=== PATIENT | male | born 1985 | race Caucasian/White ===

== ENCOUNTER 2019-05-27 14:51 | Emergency (ER) | payer OTHER ==
[2019-05-27 14:59] VITALS: BP 136/75; PULSE 101; RESP 18; TEMP 97.9
[2019-05-27] MEDS ORDERED: KETOROLAC 30 MG/ML 1 ML VIAL IM STA (15:29)
--- NOTE | 2019-05-27 15:52 | ED ---
General Adult HPI - General Chief complaint: Skin/Abscess/Foreign Body Stated complaint: Abcess on belly Time Seen by Provider: 05/27/19 15:08 Source: patient Mode of arrival: ambulatory Limitations: no limitations - History of Present Illness Initial comments: Patient is a 33-year-old male with history of MRSA presents emergency Department with a skin infection on his abdomen. Patient reports the lesion started approximately 2 weeks ago and almost resolved but has not reappeared again and is larger in size. Patient reports severe pain with palpation. Patient denies any fevers, chest pain, nausea or vomiting. Patient reports sharp pain on palpation. Patient denies taking any medication to alleviate the symptoms. - Related Data Home Medications Medication Instructions Recorded Confirmed Albuterol Inhaler [Ventolin 1 - 2 puff INHALATION RT-Q6H PRN 12/06/14 05/24/16 Inhaler] Methylphenidate HCl [Ritalin] 20 mg PO BID 12/06/14 05/24/16 Acetaminophen-Codeine 300-30mg 1 tab PO Q4H PRN 05/24/16 05/24/16 [Tylenol w/codeine #3] [place]-Rkml [id number] 1 tab PO Q4HR PRN 05/24/16 05/24/16 [Excedrin] HYDROcodone/APAP 5-325MG [[place] 1 tab PO Q4HR PRN 05/24/16 05/24/16 5-325] Ibuprofen [Motrin] 800 mg PO Q6HR PRN 05/24/16 05/24/16 Previous Rx's Medication Instructions Recorded Penicillin V Potassium [Pen Vee K] 500 mg PO QID #40 tab 05/19/16 Cephalexin [Keflex] 500 mg PO Q6HR #40 cap 05/27/19 Doxycycline Monohydrate [Monodox] 100 mg PO Q12HR #20 cap 05/27/19 Ibuprofen [Motrin] 800 mg PO Q6HR #30 tab 05/27/19 Allergies Allergy/AdvReac Type Severity Reaction Status Date / Time famotidine [From Pepcid] Allergy Unknown Verified 05/27/19 14:56 prednisone Allergy Unknown Verified 05/27/19 14:56 sulfamethoxazole Allergy Unknown Verified 05/27/19 14:56 [From Bactrim] trimethoprim [From Bactrim] Allergy Unknown Verified 05/27/19 14:56 mmr Allergy Unknown Uncoded 05/24/16 12:00 Review of Systems ROS Statement: Those systems with pertinent positive or pertinent negative responses have been documented in the HPI. ROS Other: All systems not noted in ROS Statement are negative. Past Medical History Past Medical History: Asthma Additional Past Medical History / Comment(s): MRSA - LT AXILLA 06/2014 History of Any Multi-Drug Resistant Organisms: MRSA Date of last positivie culture/infection: 06/08/14 MDRO Source:: Left Arm Past Surgical History: No Surgical Hx Reported Past Psychological History: ADD/ADHD, Anxiety Smoking Status: Current every day smoker Past Alcohol Use History: None Reported Past Drug Use History: Marijuana General Exam - General Exam Comments Initial Comments: General: Well-developed well-nourished distress HEENT: Normocephalic/atraumatic, PERLL, pharynx erythema, swallowing well, EAC no erythema, no exudates, TM clear, no cervical lymph nodes Neck: Supple, nontender, trachea midline Chest/Lungs: Normal respirations, no signs of respiratory distress clear to auscultation bilaterally no wheezes, rales, rhonchi Cardiac: Regular rate and rhythm, normal S1-S2, no murmurs rubs or gallops Abdomen/GI: Soft nontender, bowel sounds equal or quadrant x4, no guarding, no rebound no CVA tenderness Musculoskeletal: Nontender, full range of motion, no edema, strength equal bilaterally Skin: Warmth, 3 similar diameter erythematous lesion noted on the right upper quadrant, no fluctuance, 4 cm of induration, no discharge. Neurologic: AAO x 3, CN 2-12 intact, Psychiatric: Mood and affect normal, judgment normal Limitations: no limitations Course Vital Signs 05/27/19 14:56 Temperature 97.9 F Pulse Rate 101 H Respiratory 18 Rate Blood Pressure 136/75 O2 Sat by Pulse 99 Oximetry Medical Decision Making - Medical Decision Making She is a 33-year-old male presenting to emergency Department with a lesion on his abdomen. Patient reports all of his MRSA infections look very similar and this one appears to be exactly the same. Patient is coming to the emergency department for antibiotic. Patient was given ibuprofen for pain control. Patient will be discharged with a 10 day course of doxycycline due to his Bactrim ALLERGY and Keflex. Patient advised to follow-up with primary care. Strict return parameters were thoroughly discussed with patient was understanding and agreeable.I counseled the patient for smoking cessation for greater than 3 minutes. Case discussed with physician. Disposition Clinical Impression: Abscess Disposition: HOME SELF-CARE Condition: Stable Instructions (If sedation given, give patient instructions): Abscess (ED) Additional Instructions: Please take prescribed medication as directed. Please follow with primary care. Please return to emergency department if symptoms worsen. Prescriptions: Cephalexin [Keflex] 500 mg PO Q6HR #40 cap Doxycycline Monohydrate [Monodox] 100 mg PO Q12HR #20 cap Ibuprofen [Motrin] 800 mg PO Q6HR #30 tab Is patient prescribed a controlled substance at d/c from ED?: No Referrals: None,Stated [Primary Care Provider] - 1-2 days Time of Disposition: 15:53
== END 2019-05-27 16:00 | disposition home or self-care (01) ==
LOC: EC 14:51
DX: L02.211 Cutaneous abscess of abdominal wall (principal); J45.909 Unspecified asthma, uncomplicated; F90.9 Attention-deficit hyperactivity disorder, unspecified type; F17.200 Nicotine dependence, unspecified, uncomplicated; Z88.1 Allergy status to other antibiotic agents; Z88.2 Allergy status to sulfonamides; Z88.7 Allergy status to serum and vaccine; Z88.8 Allergy status to other drugs, medicaments and biological substances; Z79.899 Other long term (current) drug therapy; Z86.14 Personal history of Methicillin resistant Staphylococcus aureus infection; Z71.6 Tobacco abuse counseling; Z53.20 Procedure and treatment not carried out because of patient's decision for unspecified reasons
CPT/HCPCS: 99282; 99406

== ENCOUNTER → 2019-08-13 | Outpatient (CLI) | payer SELFPAY | END | disposition home or self-care (01) | LOC: LABWHC1 15:44 | PROVIDERS: ATTEND Obstetrics & Gynecology | DX: Z01.84 Encounter for antibody response examination (principal) | CPT/HCPCS: 86850; 86900; 86901; 86902 ==

== ENCOUNTER 2020-01-25 01:41 | Emergency (ER) | payer OTHER ==
[2020-01-25 01:47] VITALS: BP 164/91; PULSE 101; RESP 18; TEMP 98.5
[2020-01-25] MEDS ORDERED: IBUPROFEN 600 MG TAB PO STA (02:53)
[2020-01-25] MEDS ORDERED: CEPHALEXIN 500MG STARTER PACK 4 CAP BTL PO STA (02:55)
[2020-01-25] MEDS ORDERED: CEPHALEXIN 500 MG CAP PO STA (02:55)
[2020-01-25] MEDS ORDERED: DOXYCYCLINE 100 MG CAP PO STA (02:55)
--- NOTE | 2020-01-25 03:14 | ED ---
General Adult HPI - General Chief complaint: Skin/Abscess/Foreign Body Stated complaint: MRSA Time Seen by Provider: 01/25/20 02:04 Source: patient, RN notes reviewed, old records reviewed Mode of arrival: ambulatory Limitations: no limitations - History of Present Illness Initial comments: 34-year-old male patient has a history of MRSA (evaluation of abscess. Patient reports he does have 3 abscess at this time, however 1 she is most concerned about. Patient reports that on his left posterior thigh region he has an abscess also reports small and suprapubic and right wrist. Denies any systemic symptoms of infection. Denies any cough fever, denies any coronavirus exposures or travel. Denies any other complaints. Systemic: Pt denies fatigue, fever/chills, rash. Pt denies weakness, night sweats, weight loss. Neuro: Pt denies headache, visual disturbances, syncope or pre-syncope. HEENT: Pt denies ocular discharge or irritation, otalgia, rhinorrhea, pharyngitis or notable lymphadenopathy. Cardiopulmonary: Pt denies chest pain, SOB, heart palpitations, dyspnea on exertion. Abdominal/GI: Pt denies abdominal pain, n/v/d. : Pt denies dysuria, burning w/ urination, frequency/urgency. Denies new onset urinary or bowel incontinence. MSK: Pt denies myalgia, loss of strength or function in extremities. Neuro: Pt denies new onset weakness, paresthesias. - Related Data Home Medications Medication Instructions Recorded Confirmed Albuterol Inhaler [Ventolin 1 - 2 puff INHALATION RT-Q6H PRN 12/06/14 05/24/16 Inhaler] Methylphenidate HCl [Ritalin] 20 mg PO BID 12/06/14 05/24/16 Acetaminophen-Codeine 300-30mg 1 tab PO Q4H PRN 05/24/16 05/24/16 [Tylenol w/codeine #3] [place]-Mjop-Xszs [id number] 1 tab PO Q4HR PRN 05/24/16 05/24/16 [Excedrin] HYDROcodone/APAP 5-325MG [[place] 1 tab PO Q4HR PRN 05/24/16 05/24/16 5-325] Ibuprofen [Motrin] 800 mg PO Q6HR PRN 05/24/16 05/24/16 Previous Rx's Medication Instructions Recorded Penicillin V Potassium [Pen Vee K] 500 mg PO QID #40 tab 05/19/16 Cephalexin [Keflex] 500 mg PO Q6HR #40 cap 05/27/19 Doxycycline Monohydrate [Monodox] 100 mg PO Q12HR #20 cap 05/27/19 Ibuprofen [Motrin] 800 mg PO Q6HR #30 tab 05/27/19 Cephalexin [Keflex] 500 mg PO Q6HR 10 Days #40 cap 01/25/20 Doxycycline [Vibramycin] 100 mg PO BID 14 Days #7 capsule 01/25/20 Allergies Allergy/AdvReac Type Severity Reaction Status Date / Time famotidine [From Pepcid] Allergy Unknown Verified 01/25/20 01:47 prednisone Allergy Unknown Verified 01/25/20 01:47 sulfamethoxazole Allergy Unknown Verified 01/25/20 01:47 [From Bactrim] trimethoprim [From Bactrim] Allergy Unknown Verified 01/25/20 01:47 mmr Allergy Unknown Uncoded 01/25/20 01:47 Review of Systems ROS Statement: Those systems with pertinent positive or pertinent negative responses have been documented in the HPI. ROS Other: All systems not noted in ROS Statement are negative. Past Medical History Past Medical History: Asthma Additional Past Medical History / Comment(s): MRSA - LT AXILLA 06/2014 History of Any Multi-Drug Resistant Organisms: MRSA Date of last positivie culture/infection: 06/08/14 MDRO Source:: Left Arm Past Surgical History: No Surgical Hx Reported Past Psychological History: ADD/ADHD, Anxiety Smoking Status: Current every day smoker Past Alcohol Use History: None Reported Past Drug Use History: Marijuana General Exam - General Exam Comments Initial Comments: Constitutional: NAD, AOX3, Pt has pleasant affect. HEENT: NC/AT, trachea midline, neck supple, no lymphadenopathy. Posterior pharynx non erythematous, without exudates. External ears appear normal, without discharge. Mucous membranes moist. Eyes PERRLA, EOM intact. There is no scleral icterus. No pallor noted. Cardiopulmonary: RRR, no murmurs, rubs or gallops, no JVD noted. Lungs CTAB in anterior and posterior craven. No peripheral edema. Abdominal exam: Abdomen soft and non-distended. Abdomen non-tender to palpation in all 4 quadrants. Bowel sounds active in LLQ. No hepatosplenomegaly. No ecchymosis Neuro: CN II-XII grossly intact. No nuchal rigidity. No raccon eyes, no mcdonald sign, no hemotympanum. No cervical spinal tenderness. MSK: No posterior calf tenderness bilaterally, homans sign negative bilaterally. Posterior tibialis and radial pulse +2 bilaterally. Sensation intact in upper and lower extremities. Full active ROM in upper and lower extremities, 5/5 stregnth. Derm: 1 x 1 centimeter abscess right medial wrist region, minimal fluctuance, small amount of erythema. No streaking. 2 x 2 centimeter abscess suprapubic region, spontaneously draining. No streaking. 4 x 4 centimeter abscess left posterior thigh region. Cellulitic changes noted, no streaking, mild fluctuance, spontaneous drainage noted, incision and drainage performed. 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 Patient reports he does have 3 abscess at this time, however 1 she is most concerned about. Patient reports that on his left posterior thigh region he has an abscess also reports small and suprapubic and right wrist. Denies any systemic symptoms of infection. Denies any cough fever, denies any coronavirus exposures or travel. Denies any other complaints. Pt afebrile. Physical exam displayed: 1 x 1 centimeter abscess right medial wrist region, minimal fluctuance, small amount of erythema. No streaking. 2 x 2 centimeter abscess suprapubic region, spontaneously draining. No streaking. 4 x 4 centimeter abscess left posterior thigh region. Cellulitic changes noted, no streaking, mild fluctuance, spontaneous drainage noted, incision and drainage performed. Patient declines in drainage for all abscess with exception of posterior thigh. Patient will be discharged with doxycycline and Keflex. Will follow up with primary care provider and will return to ER if condition worsens. Case discussed with Dr. Palomares. Disposition Clinical Impression: Abscess, Cellulitis Disposition: HOME SELF-CARE Condition: Stable Instructions (If sedation given, give patient instructions): Cellulitis (ED), Abscess Incision and Drainage (ED), Abscess (ED) Additional Instructions: Take antibiotics as directed. Follow up with primary care provider tomorrow. Return to ER if condition worsens in any way. Prescriptions: Cephalexin [Keflex] 500 mg PO Q6HR 10 Days #40 cap Doxycycline [Vibramycin] 100 mg PO BID 14 Days #7 capsule Is patient prescribed a controlled substance at d/c from ED?: No Referrals: None,Stated [Primary Care Provider] - 1-2 days [facility] [NON-STAFF] - 1-2 days
--- NOTE | 2020-01-25 04:15 | ED ---
Disposition Clinical Impression: Abscess, Cellulitis Disposition: HOME SELF-CARE Condition: Stable Instructions (If sedation given, give patient instructions): Cellulitis (ED), Abscess Incision and Drainage (ED), Abscess (ED) Additional Instructions: Take antibiotics as directed. Follow up with primary care provider tomorrow. Return to ER if condition worsens in any way. 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
== END 2020-01-25 03:28 | disposition home or self-care (01) ==
LOC: EC 01:41
DX: L03.116 Cellulitis of left lower limb (principal); L03.314 Cellulitis of groin; L03.113 Cellulitis of right upper limb; J45.909 Unspecified asthma, uncomplicated; F90.9 Attention-deficit hyperactivity disorder, unspecified type; F17.200 Nicotine dependence, unspecified, uncomplicated; Z88.2 Allergy status to sulfonamides; Z88.7 Allergy status to serum and vaccine; Z88.8 Allergy status to other drugs, medicaments and biological substances; Z79.899 Other long term (current) drug therapy; Z86.14 Personal history of Methicillin resistant Staphylococcus aureus infection
CPT/HCPCS: 10060; 87070; 87077; 87186; 87205; 99284

== ENCOUNTER 2020-09-09 23:27 | Emergency (ER) | payer OTHER ==
[2020-09-09 23:41] VITALS: BP 158/119; PULSE 88; RESP 18; TEMP 98
[2020-09-09] MEDS ORDERED: CLINDAMYCIN 150 MG CAP PO STA (23:52)
[2020-09-09] MEDS ORDERED: IBUPROFEN 600 MG TAB PO STA (23:52)
[2020-09-09] MEDS ORDERED: HYDROcodone/APAP 5-325MG 1 EACH TAB PO STA (23:52)
--- NOTE | 2020-09-10 00:03 | ED ---
ENT HPI - General Chief complaint: ENT Stated complaint: Ear Pain/Jaw Pain Time Seen by Provider: 09/09/20 23:43 Source: patient Mode of arrival: ambulatory Limitations: no limitations - History of Present Illness Initial comments: Patient is a 34-year-old male presenting to emergency Department with complaints of right ear pain that just started today. Patient states he does have many dental caries and does not know if it's coming from his teeth or not. He states his hearing is a bit muffled on the right side as well. Patient states he does have some referred pain into his right jaw and into the right upper dental area. He denies any fever or chills. Denies a cough or sinus congestion. He states his pain just became severe today. He denies any injuries to his ear or his head. He has no further complaints at this time. Upon arrival to the ER his vital signs are stable. - Related Data Home Medications Medication Instructions Recorded Confirmed Albuterol Inhaler (Mhu) [Ventolin 1 - 2 puff INHALATION RT-Q6H PRN 12/06/14 05/24/16 Inhaler] Methylphenidate HCl [Ritalin] 20 mg PO BID 12/06/14 05/24/16 Acetaminophen-Codeine 300-30mg 1 tab PO Q4H PRN 05/24/16 05/24/16 [Tylenol w/codeine #3] Sqfzwvf-Tjyv-Eqjk [id number] 1 tab PO Q4HR PRN 05/24/16 05/24/16 [Excedrin] HYDROcodone/APAP 5-325MG [[place] 1 tab PO Q4HR PRN 05/24/16 05/24/16 5-325] Ibuprofen [Motrin] 800 mg PO Q6HR PRN 05/24/16 05/24/16 Previous Rx's Medication Instructions Recorded Penicillin V Potassium [Pen Vee K] 500 mg PO QID #40 tab 05/19/16 Cephalexin [Keflex] 500 mg PO Q6HR #40 cap 05/27/19 Doxycycline Monohydrate [Monodox] 100 mg PO Q12HR #20 cap 05/27/19 Ibuprofen [Motrin] 800 mg PO Q6HR #30 tab 05/27/19 Cephalexin [Keflex] 500 mg PO Q6HR 10 Days #40 cap 01/25/20 Doxycycline [Vibramycin] 100 mg PO BID 14 Days #7 capsule 01/25/20 Clindamycin HCl 300 mg PO Q8H 7 Days #21 cap 09/10/20 Clindamycin [Cleocin] 150 mg PO Q8H 7 Days #21 capsule 09/10/20 Ibuprofen [Motrin] 600 mg PO Q8HR PRN #30 tab 09/10/20 Allergies Allergy/AdvReac Type Severity Reaction Status Date / Time famotidine [From Pepcid] Allergy Unknown Verified 09/09/20 23:41 prednisone Allergy Unknown Verified 09/09/20 23:41 sulfamethoxazole Allergy Unknown Verified 09/09/20 23:41 [From Bactrim] trimethoprim [From Bactrim] Allergy Unknown Verified 09/09/20 23:41 mmr Allergy Unknown Uncoded 09/09/20 23:41 Review of Systems ROS Statement: Those systems with pertinent positive or pertinent negative responses have been documented in the HPI. ROS Other: All systems not noted in ROS Statement are negative. Past Medical History Past Medical History: Asthma Additional Past Medical History / Comment(s): MRSA - LT AXILLA 06/2014 History of Any Multi-Drug Resistant Organisms: MRSA Date of last positivie culture/infection: 06/08/14 MDRO Source:: Left Arm Past Surgical History: No Surgical Hx Reported Past Psychological History: ADD/ADHD, Anxiety Smoking Status: Current every day smoker Past Alcohol Use History: None Reported Past Drug Use History: Marijuana General Exam - General Exam Comments Initial Comments: GENERAL: Patient is well-developed and well-nourished. Patient is nontoxic and in mild distress. HEAD: Atraumatic, normocephalic. EYES: Pupils equal round and reactive to light, extraocular movements intact, sclera anicteric, conjunctiva are normal. Eyelids were unremarkable. ENT: Right TM is erythematous and bulging, left TM appears normal. nares patent, oropharynx clear without exudates. Moist mucous membranes. Patient has many dental caries, no visible abscess, mild pain with palpation of the right upper gumline. NECK: Normal range of motion, supple without lymphadenopathy or JVD. LUNGS: Unlabored respirations. Breath sounds clear to auscultation bilaterally and equal. No wheezes rales or rhonchi. HEART: Regular rate and rhythm without murmurs, rubs or gallops. ABDOMEN: Soft, nontender, normoactive bowel sounds. No guarding, no rebound. No masses appreciated. : Deferred MUSCULOSKELETAL: Normal extremities with adequate strength and normal range of motion, no pitting or edema. No clubbing or cyanosis. NEUROLOGICAL: Patient is alert and oriented x 3. Symmetrical smile. Normal speech, normal gait. PSYCH: Normal mood, normal affect. SKIN: Warm, Dry, normal turgor, no rashes or lesions noted. Limitations: no limitations Course Vital Signs 09/09/20 23:38 Temperature 98 F Pulse Rate 88 Respiratory 18 Rate Blood Pressure 158/119 O2 Sat by Pulse 100 Oximetry Medical Decision Making - Medical Decision Making Patient is a 34-year-old male here for right ear pain with some referred pain into the right jaw and right upper dental area. He does have been a dental caries, right ear otitis media as well. I will start patient on clindamycin. I also give him a tablet of [place] and ibuprofen here in the ER. I will continue him on ibuprofen, as well as the clindamycin. I recommend following up with his dentist and/or PCP. Patient is agreeable with this plan of care. He is stable for discharge. Return parameters were discussed the patient he verbalizes understanding. Disposition Clinical Impression: Right otitis media, Dental caries, Pain, dental Disposition: HOME SELF-CARE Condition: Stable Instructions (If sedation given, give patient instructions): Ear Infection (ED) Additional Instructions: Please return to the Emergency Department if symptoms worsen or any other concerns. Take antibiotic as prescribed. May alternate ibuprofen with Tylenol every 4 hours for discomfort. Follow-up with PCP or dentist. Prescriptions: Clindamycin [Cleocin] 150 mg PO Q8H 7 Days #21 capsule Clindamycin HCl 300 mg PO Q8H 7 Days #21 cap Ibuprofen [Motrin] 600 mg PO Q8HR PRN #30 tab PRN Reason: Pain Is patient prescribed a controlled substance at d/c from ED?: No Referrals: None,Stated [Primary Care Provider] - 1-2 days
== END 2020-09-10 00:18 | disposition home or self-care (01) ==
LOC: EC 23:27
DX: H66.91 Otitis media, unspecified, right ear (principal); K02.9 Dental caries, unspecified; J45.909 Unspecified asthma, uncomplicated; F17.200 Nicotine dependence, unspecified, uncomplicated; F90.9 Attention-deficit hyperactivity disorder, unspecified type; F41.9 Anxiety disorder, unspecified; Z79.899 Other long term (current) drug therapy; Z88.1 Allergy status to other antibiotic agents; Z88.2 Allergy status to sulfonamides; Z88.8 Allergy status to other drugs, medicaments and biological substances; Z86.14 Personal history of Methicillin resistant Staphylococcus aureus infection
CPT/HCPCS: 99283

== ENCOUNTER 2021-06-05 | Emergency (ER) | payer OTHER ==
[2021-06-05 00:14] VITALS: BP 163/99; PULSE 115; RESP 20; TEMP 98.9
[2021-06-05] MEDS: ACETAMINOPHEN TAB 500 MG TAB PO STA (01:20)
[2021-06-05] MEDS: IBUPROFEN 600 MG TAB PO STA (01:21)
[2021-06-05] MEDS: guaiFENesin-DM 600/30MG 1 EACH TAB.ER.12H PO ONE (01:27)
--- NOTE | 2021-06-05 01:38 | XR ---
EXAMINATION TYPE: XR chest 1V DATE OF EXAM: 06/05/2021 COMPARISON: 04/30/2013 HISTORY: Cough TECHNIQUE: Single view FINDINGS: Heart and mediastinum are normal. Lungs are clear. Diaphragm is normal. Bony thorax is inta ct. IMPRESSION: Normal chest. No change.
[2021-06-05 02:21] LABS: Appearance,Urine Clear (Clear); Bilirubin,Urine Negative (Negative); Blood,Urine Negative (Negative); Color,Urine Yellow; Glucose,Urine (UA) Negative (Negative); Ketones,Urine Negative (Negative); Leukocyte Esterase,Urine Negative (Negative); Nitrite,Urine Negative (Negative); Protein,Urine Trace (Negative); Specific Gravity,Urine 1.025 (1.001-1.035); Urobilinogen,Urine <2.0 mg/dL (<2.0)
--- NOTE | 2021-06-05 02:36 | ED ---
URI HPI - General Chief Complaint: Upper Respiratory Infection Stated Complaint: MORGAN, Body Aches Time Seen by Provider: 06/05/21 00:26 Source: patient Mode of arrival: ambulatory - History of Present Illness Initial Comments: 35-year-old male patient presents the emergency department today for evaluation of nasal congestion, facial pressure, cough. States he is also having body aches and feels like he is "on fire". Patient denies taking any medication for fever or aches. States he has took a dose of DayQuil and Sudafed without relief. Denies any chest pain or shortness of breath with this. Denies being vaccinated for Covid. States he did test positive in October but did not have any symptoms. Does admits to smoking cigarettes. Denies any sick contacts. Patient denies any recent rash, abdominal pain, nausea, vomiting, diarrhea, constipation, back pain, numbness, tingling, dizziness, weakness, hematuria, dysuria, urinary urgency, urinary frequency, headache, visual changes, or any other complaints. - Related Data Home Medications Medication Instructions Recorded Confirmed Albuterol Inhaler (Mhu) [Ventolin 1 - 2 puff INHALATION RT-Q6H PRN 12/06/14 05/24/16 Inhaler] Methylphenidate HCl [Ritalin] 20 mg PO BID 12/06/14 05/24/16 Acetaminophen-Codeine 300-30mg 1 tab PO Q4H PRN 05/24/16 05/24/16 [Tylenol w/codeine #3] [id number] 1 tab PO Q4HR PRN 05/24/16 05/24/16 [Excedrin] HYDROcodone/APAP 5-325MG [[place] 1 tab PO Q4HR PRN 05/24/16 05/24/16 5-325] Ibuprofen [Motrin] 800 mg PO Q6HR PRN 05/24/16 05/24/16 Previous Rx's Medication Instructions Recorded Penicillin V Potassium [Pen Vee K] 500 mg PO QID #40 tab 05/19/16 Cephalexin [Keflex] 500 mg PO Q6HR #40 cap 05/27/19 Doxycycline Monohydrate [Monodox] 100 mg PO Q12HR #20 cap 05/27/19 Ibuprofen [Motrin] 800 mg PO Q6HR #30 tab 05/27/19 Cephalexin [Keflex] 500 mg PO Q6HR 10 Days #40 cap 01/25/20 Doxycycline [Vibramycin] 100 mg PO BID 14 Days #7 capsule 01/25/20 Clindamycin HCl 300 mg PO Q8H 7 Days #21 cap 09/10/20 Clindamycin [Cleocin] 150 mg PO Q8H 7 Days #21 capsule 09/10/20 Ibuprofen [Motrin] 600 mg PO Q8HR PRN #30 tab 09/10/20 Ibuprofen [Motrin] 600 mg PO Q8HR PRN #30 tab 06/05/21 guaiFENesin-DM 600/30MG [Mucinex 2 each PO Q12HR PRN #20 tab.er.12h 06/05/21 Dm] Allergies Allergy/AdvReac Type Severity Reaction Status Date / Time famotidine [From Pepcid] Allergy Unknown Verified 06/05/21 00:14 prednisone Allergy Unknown Verified 06/05/21 00:14 sulfamethoxazole Allergy Unknown Verified 06/05/21 00:14 [From Bactrim] trimethoprim [From Bactrim] Allergy Unknown Verified 06/05/21 00:14 mmr Allergy Unknown Uncoded 06/05/21 00:14 Review of Systems ROS Statement: Those systems with pertinent positive or pertinent negative responses have been documented in the HPI. ROS Other: All systems not noted in ROS Statement are negative. Past Medical History Past Medical History: Asthma Additional Past Medical History / Comment(s): MRSA - LT AXILLA 06/2014 History of Any Multi-Drug Resistant Organisms: MRSA Date of last positivie culture/infection: 06/08/14 MDRO Source:: Left Arm Past Surgical History: No Surgical Hx Reported Past Psychological History: ADD/ADHD, Anxiety Smoking Status: Current every day smoker Past Alcohol Use History: None Reported Past Drug Use History: Marijuana General Exam General appearance: alert, in no apparent distress Respiratory exam: Present: normal lung sounds bilaterally. Absent: respiratory distress, wheezes, rales, rhonchi, stridor Cardiovascular Exam: Present: normal rhythm, tachycardia, normal heart sounds. Absent: systolic murmur, diastolic murmur, rubs, gallop, clicks GI/Abdominal exam: Present: soft, normal bowel sounds. Absent: distended, tenderness, guarding, rebound, rigid Neurological exam: Present: alert, oriented X3, CN II-XII intact Psychiatric exam: Present: normal affect Skin exam: Present: warm, dry, intact, normal color. Absent: rash Course Vital Signs 06/05/21 00:11 Temperature 98.9 F Pulse Rate 115 H Respiratory 20 Rate Blood Pressure 163/99 O2 Sat by Pulse 98 Oximetry Medical Decision Making - Medical Decision Making 35-year-old male patient presented to the emergency department today for evaluation of nasal congestion and body aches. Physical exam revealed normal lung sounds. He did have temp 99.9. Chest xray was negative. COVID test negative. He was given mucinex, tylenol, and motrin. I was going back in room to update the patient, he had left telling the nurse he had to go. Prescriptions were sent to his pharmacy. Unable to provide follow up instructions. My attending is Dr. Richards. - Lab Data Lab Results 06/05/21 06/05/21 Range/Units 01:31 02:05 Urine Color Yellow Urine Appearance Clear (Clear) Urine pH 6.0 (5.0-8.0) Ur Specific [place] 1.025 (1.001-1.035) Urine Protein Trace H (Negative) Urine Glucose (UA) Negative (Negative) Urine Ketones Negative (Negative) Urine Blood Negative (Negative) Urine Nitrite Negative (Negative) Urine Bilirubin Negative (Negative) Urine Urobilinogen <2.0 (<2.0) mg/dL Ur Leukocyte Esterase Negative (Negative) Coronavirus (PCR) Not Detected (Not Detectd) - Radiology Data Radiology results: report reviewed, image reviewed 1 x-ray of the chest is obtained. Report reviewed in its entirety. Impression by Dr. Toscano shows normal chest. No change. Disposition Clinical Impression: Viral upper respiratory infection Disposition: HOME SELF-CARE Condition: Good Instructions (If sedation given, give patient instructions): Upper Respiratory Infection (ED) Additional Instructions: Take medications as directed. Alternate Tylenol Motrin for pain and fever control. Increase fluids and rest. Follow-up with your primary care physician for recheck in 1-2 days. Return for any new, worsening, or concerning symptoms. Prescriptions: Ibuprofen [Motrin] 600 mg PO Q8HR PRN #30 tab PRN Reason: Pain guaiFENesin-DM 600/30MG [Mucinex Dm] 2 each PO Q12HR PRN #20 tab.er.12h PRN Reason: Cough Is patient prescribed a controlled substance at d/c from ED?: No Referrals: None,Stated [Primary Care Provider] - 1-2 days Time of Disposition: 02:58
== END 2021-06-05 03:03 | disposition home or self-care (01) ==
LOC: EC
DX: J06.9 Acute upper respiratory infection, unspecified (principal); B97.89 Other viral agents as the cause of diseases classified elsewhere; J45.909 Unspecified asthma, uncomplicated; F41.9 Anxiety disorder, unspecified; F90.9 Attention-deficit hyperactivity disorder, unspecified type; F17.210 Nicotine dependence, cigarettes, uncomplicated; F12.90 Cannabis use, unspecified, uncomplicated; Z20.822 Contact with and (suspected) exposure to COVID-19; Z79.51 Long term (current) use of inhaled steroids
CPT/HCPCS: 71045; 81003; 87635; 99283

== ENCOUNTER 2021-06-21 00:48 | Emergency (ER) | payer OTHER ==
--- NOTE | 2021-06-21 01:44 | ED ---
Skin/Abscess/FB HPI - General Chief complaint: Skin/Abscess/Foreign Body Stated complaint: Ankle Rash Time Seen by Provider: 06/21/21 01:12 Source: patient, RN notes reviewed Mode of arrival: ambulatory Limitations: no limitations - History of Present Illness Initial comments: Patient is a 35-year-old male that presents to emergency room complaining of right lower leg redness and pain. He notes that he did have a ankle collar on for monitoring for probation reasons. He notes that it started to rinse with a had a switch to the left ankle. He notes that he's been trying Neosporin ointment but does not appear to be getting better. He denied any other issues or complaints at this time. He denied any weakness numbness tingling decreased range of motion or sensation in his right lower extremity. 90 chest pain shortness breath headache nausea vomiting diarrhea comes patient fever fatigue chills. - Related Data Home Medications Medication Instructions Recorded Confirmed Albuterol Inhaler (Mhu) [Ventolin 1 - 2 puff INHALATION RT-Q6H PRN 12/06/14 05/24/16 Inhaler] Methylphenidate HCl [Ritalin] 20 mg PO BID 12/06/14 05/24/16 Acetaminophen-Codeine 300-30mg 1 tab PO Q4H PRN 05/24/16 05/24/16 [Tylenol w/codeine #3] [id number] 1 tab PO Q4HR PRN 05/24/16 05/24/16 [Excedrin] HYDROcodone/APAP 5-325MG [[place] 1 tab PO Q4HR PRN 05/24/16 05/24/16 5-325] Ibuprofen [Motrin] 800 mg PO Q6HR PRN 05/24/16 05/24/16 Previous Rx's Medication Instructions Recorded Penicillin V Potassium [Pen Vee K] 500 mg PO QID #40 tab 05/19/16 Cephalexin [Keflex] 500 mg PO Q6HR #40 cap 05/27/19 Doxycycline Monohydrate [Monodox] 100 mg PO Q12HR #20 cap 05/27/19 Ibuprofen [Motrin] 800 mg PO Q6HR #30 tab 05/27/19 Cephalexin [Keflex] 500 mg PO Q6HR 10 Days #40 cap 01/25/20 Doxycycline [Vibramycin] 100 mg PO BID 14 Days #7 capsule 01/25/20 Clindamycin HCl 300 mg PO Q8H 7 Days #21 cap 09/10/20 Clindamycin [Cleocin] 150 mg PO Q8H 7 Days #21 capsule 09/10/20 Ibuprofen [Motrin] 600 mg PO Q8HR PRN #30 tab 09/10/20 Ibuprofen [Motrin] 600 mg PO Q8HR PRN #30 tab 06/05/21 guaiFENesin-DM 600/30MG [Mucinex 2 each PO Q12HR PRN #20 tab.er.12h 06/05/21 Dm] Doxycycline Monohydrate [Monodox] 100 mg PO Q12HR #20 cap 06/21/21 Allergies Allergy/AdvReac Type Severity Reaction Status Date / Time famotidine [From Pepcid] Allergy Unknown Verified 06/21/21 01:07 prednisone Allergy Unknown Verified 06/21/21 01:07 sulfamethoxazole Allergy Unknown Verified 06/21/21 01:07 [From Bactrim] trimethoprim [From Bactrim] Allergy Unknown Verified 06/21/21 01:07 mmr Allergy Unknown Uncoded 06/05/21 00:14 Review of Systems ROS Statement: Those systems with pertinent positive or pertinent negative responses have been documented in the HPI. ROS Other: All systems not noted in ROS Statement are negative. Past Medical History Past Medical History: Asthma Additional Past Medical History / Comment(s): MRSA - LT AXILLA 06/2014 History of Any Multi-Drug Resistant Organisms: MRSA Date of last positivie culture/infection: 06/08/14 MDRO Source:: Left Arm Past Surgical History: No Surgical Hx Reported Past Psychological History: ADD/ADHD, Anxiety Smoking Status: Current every day smoker Past Alcohol Use History: None Reported Past Drug Use History: Marijuana General Exam Limitations: no limitations General appearance: alert, in no apparent distress Head exam: Present: atraumatic, normocephalic, normal inspection Eye exam: Present: normal appearance, PERRL, EOMI. Absent: scleral icterus, conjunctival injection, periorbital swelling Neck exam: Present: normal inspection Respiratory exam: Present: normal lung sounds bilaterally. Absent: respiratory distress, wheezes, rales, rhonchi, stridor Cardiovascular Exam: Present: regular rate, normal rhythm, normal heart sounds. Absent: systolic murmur, diastolic murmur, rubs, gallop, clicks Extremities exam: Present: normal inspection, full ROM, normal capillary refill. Absent: tenderness, pedal edema, joint swelling, calf tenderness Neurological exam: Present: alert, oriented X3 Psychiatric exam: Present: normal affect, normal mood Skin exam: Present: warm, dry, intact, normal color, erythema (Posterior aspect of the right lower extremity from the ankle to the mid calf.). Absent: rash Course Vital Signs 06/21/21 01:04 Temperature 98.8 F Pulse Rate 106 H Respiratory 17 Rate Blood Pressure 164/114 O2 Sat by Pulse 97 Oximetry Medical Decision Making - Medical Decision Making 35-year-old male complaining of right lower extremity pain and redness. Given clinical signs patient most likely has a cellulitis of the right lower extremity. Antibiotics recently pharmacy. Case discussed with Dr. Campos, patient discharge home with follow-up primary care. Disposition Clinical Impression: Cellulitis Disposition: HOME SELF-CARE Condition: Stable Instructions (If sedation given, give patient instructions): Cellulitis (ED) Additional Instructions: Please return to the Emergency Department if symptoms worsen or any other concerns. Follow-up with primary care in the next 1-2 days. Take antibiotic as prescribed until complete. Is patient prescribed a controlled substance at d/c from ED?: No Referrals: None,Stated [Primary Care Provider] - 1-2 days Time of Disposition: 01:43
[2021-06-21 01:55] VITALS: BP 157/102; PULSE 92; RESP 18; TEMP 97.5
== END 2021-06-21 01:54 | disposition home or self-care (01) ==
LOC: EC 00:48
DX: L03.115 Cellulitis of right lower limb (principal); J45.909 Unspecified asthma, uncomplicated; F90.9 Attention-deficit hyperactivity disorder, unspecified type; F41.9 Anxiety disorder, unspecified; F17.200 Nicotine dependence, unspecified, uncomplicated; F12.90 Cannabis use, unspecified, uncomplicated; Z88.1 Allergy status to other antibiotic agents; Z88.2 Allergy status to sulfonamides; Z79.82 Long term (current) use of aspirin
CPT/HCPCS: 99283